=== PATIENT | female | born 1945 | race Caucasian/White ===

== ENCOUNTER → 2021-07-09 | Outpatient (CLI) | payer MEDICARE, OTHER ==
[~2021-07-09] MED LIST: ACETAMINOPHEN500 M1 PO; ADULT LOW DOSE81 MG PO; ALAVERT D-12 A1 EACH PO; ALBUTEROL2.5 MG/3 M INH; ARTHRITIS PAIN150 GM TOP; BREO ELLIPTA 11 EACH INH; BRILINTA 90 MG90 MG PO; FARXIGA10 MG PO; FEROSUL325 MG PO; FLONASE 0.05% N16 GM; GABAPENTIN800 MG PO; ISOSORBIDE MONO30 MG PO; LEVOTHYROXINE175 MCG PO; METFORMIN HCL1000 MG PO; METOPROLOL TART25 MG PO; NITROSTAT 0.40.4 MG SL; NORVASC2.5 MG PO; OMEPRAZOLE40 MG PO; ONDANSETRON ODT4 MG SL; PAXIL10 MG PO; PAXIL40 MG PO; PROAIR HFA8.5 GM INH; VITAMIN D250 MCG PO; ZETIA10 MG PO
[2021-07-09 14:23] LABS: HEMOGLOBIN 13.4 gm/dl (12.3-15.3); RED BLOOD COUNT 4.63 M/UL (4.00-5.10); WHITE BLOOD COUNT 6.7 K/UL (4.5-11.0)
[2021-07-09 14:45] LABS: BUN/CREATININE RATIO 19 (0-10)
== END ==
LOC: EDSTATUS 12:30 → OPSV2 12:30
PROVIDERS: Orthopaedic Surgery
DX: Z01.818 Encounter for other preprocedural examination (principal); T84.032A Mechanical loosening of internal right knee prosthetic joint, initial encounter; R94.31 Abnormal electrocardiogram [ECG] [EKG]; R00.1 Bradycardia, unspecified
CPT/HCPCS: 71046; 80048; 83036; 85025; 85610; 85652; 85730; 86140; 93005

== ENCOUNTER → 2021-07-10 | Outpatient (CLI) | payer MEDICARE, OTHER | LOC: KOH-I 14:21 | DX: T84.038A Mechanical loosening of other internal prosthetic joint, initial encounter (principal) | CPT/HCPCS: 73700 ==

== ENCOUNTER 2021-07-23 07:22 | Inpatient (IN) | payer MEDICARE, OTHER ==
[~2021-07-23] VITALS: Ht 162.6 cm; Wt 59.0 kg
[~2021-07-23 07:22] MED LIST changes: +VITAMIN D21250 MCG PO; -VITAMIN D250 MCG PO
[2021-07-23 08:18] LABS: BUN/CREATININE RATIO 12 (0-10)
[2021-07-23] MEDS ORDERED: ENDOCET 7.5-321 EACH PO (12:02)
[2021-07-23] MEDS ORDERED: ELIQUIS2.5 MG PO (12:02)
[2021-07-23] MEDS ORDERED: ZOFRAN 4 MG TAB4 MG PO (12:02)
[2021-07-23] MEDS ORDERED: CYCLOBENZAPRINE10 MG PO (12:02)
[2021-07-24 06:30] LABS: HEMOGLOBIN 9.4 gm/dl (12.3-15.3); RED BLOOD COUNT 3.21 M/UL (4.00-5.10); WHITE BLOOD COUNT 12.2 K/UL (4.5-11.0)
[2021-07-24 06:37] LABS: BUN/CREATININE RATIO 12 (0-10)
[2021-07-25 04:30] LABS: HEMOGLOBIN 8.4 gm/dl (12.3-15.3); WHITE BLOOD COUNT 10.4 K/UL (4.5-11.0)
[2021-07-25 04:34] LABS: RED BLOOD COUNT 2.86 M/UL (4.00-5.10)
== END 2021-07-25 17:28 | disposition home or self-care (01) | DRG 467 ==
LOC: OR 07:22 → M/S 07:22 → EDSTATUS 07:30 → M/S 16:10 → OR 16:10 → M/S 07-25 17:28
PROVIDERS: ADMIT Orthopaedic Surgery
PROC: 0SRC0J9 Replacement of Right Knee Joint with Synthetic Substitute, Cemented, Open Approach (ICD-10-PCS; 2021-07-23)
PROC: 0SPC0JZ Removal of Synthetic Substitute from Right Knee Joint, Open Approach (ICD-10-PCS; principal; 2021-07-23 07:30)
DX: T84.032A Mechanical loosening of internal right knee prosthetic joint, initial encounter (principal); J96.11 Chronic respiratory failure with hypoxia; Y83.8 Other surgical procedures as the cause of abnormal reaction of the patient, or of later complication, without mention of misadventure at the time of the procedure; I10 Essential (primary) hypertension; Z20.822 Contact with and (suspected) exposure to COVID-19; J44.9 Chronic obstructive pulmonary disease, unspecified; E78.5 Hyperlipidemia, unspecified; K21.9 Gastro-esophageal reflux disease without esophagitis; Z96.653 Presence of artificial knee joint, bilateral; G89.29 Other chronic pain; F41.9 Anxiety disorder, unspecified; E11.40 Type 2 diabetes mellitus with diabetic neuropathy, unspecified; G47.00 Insomnia, unspecified; E03.9 Hypothyroidism, unspecified; I25.10 Atherosclerotic heart disease of native coronary artery without angina pectoris; M79.7 Fibromyalgia; Z95.1 Presence of aortocoronary bypass graft; Z83.6 Family history of other diseases of the respiratory system; Z82.49 Family history of ischemic heart disease and other diseases of the circulatory system; Z98.51 Tubal ligation status; Z98.890 Other specified postprocedural states; Z88.5 Allergy status to narcotic agent; Z88.8 Allergy status to other drugs, medicaments and biological substances; Z79.899 Other long term (current) drug therapy; Z79.82 Long term (current) use of aspirin; Z88.2 Allergy status to sulfonamides; Z79.84 Long term (current) use of oral hypoglycemic drugs; Z87.01 Personal history of pneumonia (recurrent); Z86.718 Personal history of other venous thrombosis and embolism; I25.2 Old myocardial infarction; Z87.11 Personal history of peptic ulcer disease
CPT/HCPCS: 36415; 73560; 73562; 76000; 80048; 82962; 85027; 86850; 86900; 86901; 87205; 94664; 94760; 97110; 97110-GP-CQ; 97116-GP-CQ; 97162; 97166; 97530; 97535; C1713; C1776; J0690; J1100; J1200; J1644; J1885; J2270; J2405; J2704; J2710; J2795; J3010; J3370; J7030; J7050; J7120

== ENCOUNTER → 2021-11-11 | Outpatient (CLI) | payer MEDICARE, OTHER ==
[~2021-11-11] MED LIST changes: +CYCLOBENZAPRINE10 MG PO; +ELIQUIS2.5 MG PO; +ENDOCET 7.5-321 EACH PO; +ZOFRAN 4 MG TAB4 MG PO
[2021-11-11 10:09] LABS: HEMOGLOBIN 11.1 gm/dl (12.3-15.3); RED BLOOD COUNT 4.22 M/UL (4.00-5.10); WHITE BLOOD COUNT 6.8 K/UL (4.5-11.0)
[2021-11-11 10:19] LABS: BUN/CREATININE RATIO 15 (0-10)
== END ==
LOC: OPSV2 08:00 → EDSTATUS 08:00 → OPSV2 08:49
PROVIDERS: Orthopaedic Surgery
DX: Z01.818 Encounter for other preprocedural examination (principal); M19.012 Primary osteoarthritis, left shoulder
CPT/HCPCS: 36415; 71046; 80048; 83036; 85025; 85610; 85652; 85730; 86140; 93005

== ENCOUNTER 2021-11-28 10:42 | Inpatient (IN) | payer MEDICARE, OTHER ==
[~2021-11-28] VITALS: Ht 162.6 cm; Wt 58.5 kg
[~2021-11-28 10:42] MED LIST changes: +ASPIRIN81 MG PO; +HYDROCODON-ACE473 ML PO
[2021-11-28 12:22] LABS: BUN/CREATININE RATIO 22 (0-10)
[2021-11-28] MEDS ORDERED: DICYCLOMINE HCL10 MG PO (17:52)
[2021-11-28] MEDS ORDERED: VITAMIN D350 MC3 PO (17:53)
[2021-11-29 05:12] LABS: HEMOGLOBIN 10.2 gm/dl (12.3-15.3); RED BLOOD COUNT 3.83 M/UL (4.00-5.10)
[2021-11-29 06:02] LABS: BUN/CREATININE RATIO 25 (0-10)
[2021-11-30 03:35] LABS: BUN/CREATININE RATIO 25 (0-10)
[2021-11-30 03:43] LABS: HEMOGLOBIN 9.2 gm/dl (12.3-15.3); RED BLOOD COUNT 3.53 M/UL (4.00-5.10)
[2021-11-30 03:55] LABS: WHITE BLOOD COUNT 13.1 K/UL (4.5-11.0)
[2021-12-01 03:25] LABS: HEMOGLOBIN 9.5 gm/dl (12.3-15.3); RED BLOOD COUNT 3.62 M/UL (4.00-5.10); WHITE BLOOD COUNT 11.4 K/UL (4.5-11.0)
[2021-12-01 03:49] LABS: BUN/CREATININE RATIO 28 (0-10)
[2021-12-02 05:49] LABS: HEMOGLOBIN 9.9 gm/dl (12.3-15.3); RED BLOOD COUNT 3.74 M/UL (4.00-5.10); WHITE BLOOD COUNT 9.2 K/UL (4.5-11.0)
[2021-12-02 06:11] LABS: BUN/CREATININE RATIO 40 (0-10)
--- NOTE | 2021-12-02 17:11 | NUR ---
LATE ENTRY 12/02/2021 1648 APPROACHED PATIENTS ROOM, PATIENT NOTED TO BE YELLING AT STAFF AND STATES, "I AM LEAVING, NO ONE CAN STOP ME FROM LEAVING. I DON'T CARE. I NEED OUT OF HERE I AM GOING TO SIT OUTSIDE AND WAIT ON MY FAMILY. " PROVIDERS MADE AWARE OF PATIENT LEAVING AMA, PATIENT ALERT AND ORIENTED X4. PATIENT SIGNED AMA PAPER AT THIS TIME, AND PLACED ON PATIENTS CHART. PATIENT VERBALIZED UNDERSTANDING OF RISKS AND BENEFITS OF LEAVING AMA. CALLED PATIENTS SISTER RAJENDRA AT THIS TIME, AND MADE HER AWARE THAT PATIENT WAS LEAVING. KETTLE COORDINATOR MADE AWARE, AND CHARGE NURSE; SUNNY HILARIO
== END 2021-12-02 16:47 | disposition left against medical advice (07) | DRG 483 ==
LOC: OR 10:42 → M/S 10:42 → OR 12:15 → M/S 15:46 → OR 15:46 → M/S 11-30 12:51 → OR 11-30 12:52 → M/S 12-02 16:47
PROVIDERS: Internal Medicine; ADMIT Orthopaedic Surgery
PROC: 0RRK00Z Replacement of Left Shoulder Joint with Reverse Ball and Socket Synthetic Substitute, Open Approach (ICD-10-PCS; principal; 2021-11-28 14:05)
DX: M19.012 Primary osteoarthritis, left shoulder (principal); J18.9 Pneumonia, unspecified organism; J96.10 Chronic respiratory failure, unspecified whether with hypoxia or hypercapnia; J44.1 Chronic obstructive pulmonary disease with (acute) exacerbation; J44.0 Chronic obstructive pulmonary disease with (acute) lower respiratory infection; I10 Essential (primary) hypertension; E78.5 Hyperlipidemia, unspecified; K21.9 Gastro-esophageal reflux disease without esophagitis; Z96.653 Presence of artificial knee joint, bilateral; I25.10 Atherosclerotic heart disease of native coronary artery without angina pectoris; E11.9 Type 2 diabetes mellitus without complications; G47.00 Insomnia, unspecified; E03.9 Hypothyroidism, unspecified; J45.909 Unspecified asthma, uncomplicated; G89.29 Other chronic pain; F41.9 Anxiety disorder, unspecified; R00.1 Bradycardia, unspecified; Z82.49 Family history of ischemic heart disease and other diseases of the circulatory system; Z98.890 Other specified postprocedural states; Z88.2 Allergy status to sulfonamides; Z83.3 Family history of diabetes mellitus; Z90.49 Acquired absence of other specified parts of digestive tract; Z95.1 Presence of aortocoronary bypass graft; Z79.899 Other long term (current) drug therapy; Z99.81 Dependence on supplemental oxygen
CPT/HCPCS: 36415; 71045; 73020; 80048; 80053; 82550; 82553; 82962; 83735; 83880; 84100; 84484; 85027; 94640; 94760; 97110; 97110-GP-CQ; 97116; 97116-GP-CQ; 97161; 97166; 97530; 97535; C1713; C1776; J0690; J0696; J1100; J1885; J2001; J2270; J2370; J2405; J2704; J2795; J2920; J3370; J7030